=== PATIENT | male | born 2005 | race Caucasian/White ===

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

== ENCOUNTER 2024-06-13 15:27 | Emergency (ER) | payer BC ==
[~2024-06-13] VITALS: Ht 175.3 cm; Wt 70.7 kg
[2024-06-13 15:30] VITALS: BP 132/77; TEMP 97.1; O2SAT 99
[2024-06-13] MEDS: BOOSTRIX VACCINE (TETANUS/DIPHTH/ACEL. PERTUSSIS) 0.5ML SYR IM ONE (15:52)
[2024-06-13] MEDS: LIDOCAINE 1% MDV 20ML VIAL SC ONE (18:00)
== END 2024-06-13 18:54 | disposition home or self-care (01) ==
LOC: M ED 15:27
DX: S61.411A Laceration without foreign body of right hand, initial encounter (principal); W28.XXXA Contact with powered lawn mower, initial encounter; Y92.017 Garden or yard in single-family (private) house as the place of occurrence of the external cause; Y93.89 Activity, other specified; Y99.9 Unspecified external cause status; Z88.1 Allergy status to other antibiotic agents; Z23 Encounter for immunization